=== PATIENT | male | born 1965 | race Caucasian/White ===

== ENCOUNTER 2017-03-24 16:00 | Emergency (ER) | payer MEDICARE ==
[~2017-03-24] VITALS: Ht 190.5 cm; Wt 113.0 kg
[~2017-03-24 16:00] MED LIST: TRAZ100T15; ZIPR40CA2; ZOLP10TA
[2017-03-24] MEDS ORDERED: ONDANSETRON ODT 4 MG PO ONE (16:30)
[2017-03-24] MEDS ORDERED: SODIUM CHLORIDE FLUSH 10ML SYR IVF ONE (16:30)
[2017-03-24] MEDS ORDERED: SODIUM CHLORIDE 0.9% 1,000ML IV ONE (16:30)
[2017-03-24 16:39] LABS: HEMATOCRIT 50.5 % (39.2-51.8); WHITE BLOOD COUNT 12.3 x10^3/uL (3.4-10)
[2017-03-24] MEDS ORDERED: MORPHINE SULFATE 4 MG/ML, 1ML ONE ×2 (16:44→17:12)
[2017-03-24] MEDS ORDERED: KETOROLAC 30 MG/1 ML ONE (16:45)
[2017-03-24] MEDS ORDERED: ONDANSETRON ODT 4 MG ONE (16:45)
[2017-03-24 16:48] LABS: BLOOD UREA NITROGEN 15 mg/dL (7-18)
[2017-03-24] MEDS: MORPHINE SULFATE 4 MG/ML, 1ML IVPush PRN ×2 (16:49→17:13)
[2017-03-24 17:00] LABS: ASPARTATE AMINO TRANSFERASE 34 U/L (15-37)
[2017-03-24] MEDS ORDERED: KETOROLAC 30 MG/1 ML IVPush ONE (17:00)
[2017-03-24 17:14] VITALS: BP 137/89
[2017-03-24 17:17] LABS: DIFF TOTAL CELLS COUNTED 100 CELL DIFF
[2017-03-24 17:20] LABS: VERIFY COUNTS? YES
[2017-03-24 17:25] LABS: PATH.CAST-FLAG NOT PRESENT; SPERM-FLAG NOT PRESENT; SRC-FLAG NOT PRESENT; XTAL-FLAG NOT PRESENT; YLC-FLAG NOT PRESENT
== END 2017-03-24 18:45 | disposition home or self-care (01) ==
LOC: ED 18:20
DX: R19.7 Diarrhea, unspecified (principal); E78.5 Hyperlipidemia, unspecified
CPT/HCPCS: 36415; 74176; 80053; 81001; 85025; 96361; 96374; 96375; 99285; J1885; J7030; Q0162

== ENCOUNTER 2020-03-02 10:25 | Emergency (ER) | payer MEDICARE ==
[~2020-03-02] VITALS: Ht 188 cm; Wt 100.7 kg
[~2020-03-02 10:25] MED LIST changes: +TRAZ-175; -TRAZ100T15
--- NOTE | 2020-03-02 10:55 | NUR ---
STYLE ADVISOR NOTE: PT TO ROOM FROM LOBBY VIA WHEELCHAIR
--- NOTE | 2020-03-02 11:18 | NUR ---
THIS FLOAT RN AT BEDSIDE TO RELIEVE PRIMARY RN ERIC FOR BREAK. EMT AT BEDSIDE FOR EKG. PT INSTRUCTED ON NEED FOR UA, VERBALIZED UNDERSTANDING STATES HE IS NOT ABLE TO PROVIDE SPECIMEN AT THIS TIME. CALL LIGHT W/IN REACH, PT INSTRUCTED ON USE, VERBALIZED UNDERSTANDING. URINAL AT BEDSIDE.
[2020-03-02 11:39] LABS: MEAN CORPUSCULAR HEMOGLOBIN 30.9 pg (27.5-34.5); MEAN PLATELET VOLUME 8.4 fL (7.4-10.4); PLATELET COUNT 270 x10^3/uL (130-400); RED BLOOD COUNT 5.15 x10^6/uL (4.38-5.82); RED CELL DISTRIBUTION WIDTH 13.5 % (9.4-14.8)
--- NOTE | 2020-03-02 11:41 | NUR ---
PT RESTING IN POSITION OF COMFORT IN [facility]. UA SENT TO LAB. URINE BISHOP, CLOUDY. PT HAS CONTINUOUS SPO2 MONITORING IN PLACE, CALL LIGHT W/IN REACH. INSTRUCTED ON USE, VERBALIZED UNDERSTANDING. PT DENIES NEEDS AT THIS TIME. VSS.
[2020-03-02 11:44] LABS: ALANINE AMINOTRANSFERASE 296 U/L (12-78); ALBUMIN 3.2 g/dL (3.4-5.0); ANION GAP 5 mmol/L (5-15); CALCIUM 9.1 mg/dL (8.5-10.1); CHLORIDE 107 mmol/L (98-107); CREATININE 1.47 mg/dL (0.7-1.3)
[2020-03-02 11:46] LABS: ALKALINE PHOSPHATASE 74 U/L (45-117); BILIRUBIN,TOTAL 0.9 mg/dL (0.2-1.0); TOTAL PROTEIN 6.8 g/dL (6.4-8.2)
--- NOTE | 2020-03-02 11:50 | NUR ---
report from todd roberts. as
[2020-03-02] MEDS ORDERED: ASEN2.5T PO (11:55)
[2020-03-02] MEDS ORDERED: TRAZ-175 PO (11:55)
[2020-03-02 12:21] LABS: MICROSCOPIC INDICATED
[2020-03-02 12:26] LABS: MD YES
[2020-03-02 12:28] LABS: <PLATELET ESTIMATE> ADEQUATE; <PLT MORPHOLOGY> NORMAL PLT MORPH; <RBC MORPHOLOGY> NORMAL; BAND#(MANUAL) 1.02 x10^3/uL; BANDS%(MANUAL) 7 % (0-7); EOS#(MANUAL) 0.15 x10^3/uL (0.0-0.4); EOS% (MANUAL) 1 % (1-7); LYMPH#(MANUAL) 4.06 x10^3/uL (1-3.4); LYMPHS% (MANUAL) 28 % (22-44); MONOS#(MANUAL) 2.03 x10^3/uL (0.3-2.7); MONOS% (MANUAL) 14 % (2-9); SEG#(MANUAL) 7.25 x10^3/uL (1.8-6.8); SEGS% (MANUAL) 50 % (42-75)
[2020-03-02] MEDS ORDERED: ONDANSETRON ODT 8 MG ONE (13:01)
--- NOTE | 2020-03-02 13:03 | NUR ---
PT SPIT UP CUP OF WATER, 8 MG ZOFRAN ODT PER VERBAL ORDER DUGLAS, PT WANTS TO LEAVE, AGREES TO DRINK IN SMALLER SIPS.
[2020-03-02 13:05] VITALS: BP 137/78
[2020-03-02] MEDS ORDERED: KETOROLAC 30 MG/1 ML IM ONE (13:30)
[2020-03-02] MEDS ORDERED: LIDODERM 5% PATCH TD ONE (13:30)
[2020-03-02] MEDS ORDERED: ONDANSETRON ODT 8 MG PO ONE (13:30)
== END 2020-03-02 13:43 | disposition left against medical advice (07) ==
LOC: ED 12:34
DX: E86.0 Dehydration (principal); M54.5 Low back pain; R94.31 Abnormal electrocardiogram [ECG] [EKG]; R10.9 Unspecified abdominal pain; E78.5 Hyperlipidemia, unspecified; F17.200 Nicotine dependence, unspecified, uncomplicated
CPT/HCPCS: 36415; 74176; 80053; 81001; 83690; 85025; 87086; 93005; 99285; Q0162